=== PATIENT | male | born 1940 | race Caucasian/White ===

== ENCOUNTER 2017-09-17 00:53 | Inpatient (IN) | payer OTHER, MEDICARE ==
[~2017-09-17] VITALS: Ht 162.6 cm; Wt 79.8 kg
[~2017-09-17 00:53] MED LIST: ALPRAZOLAM0.25 M1 PO; ATORVASTATIN CA10 M1 PO; GABAPENTIN300 M2 PO; LOSARTAN-HCTZ1 EAC2 PO; OMEPRAZOLE40 M1 PO; ONGLYZA5 M1 PO; ROXICODONE15 M1 PO; ZYRTEC10 M3 PO
[2017-09-17] MEDS ORDERED: PROTONIX20 M1 PO (09:23)
[2017-09-17] MEDS ORDERED: MIRALAX17 G1 PO (09:23)
[2017-09-17] MEDS ORDERED: DILAUDID2 M1 PO (09:23)
[2017-09-17] MEDS ORDERED: COLACE100 M1 PO (09:23)
--- NOTE | 2017-09-17 09:33 | Admission Core Measures ---
Acute Coronary Syndrome (CM) ACS Core Measures Acute Coronary Syndrome Diagnosis No Congestive Heart Failure (NEW) CHF Core Measures Congestive Heart Failure Diagnosis No Cerebrovascular Accident (NEW) CVA Core Measures CVA/TIA Diagnosis No Venous Thromboembolism VTE Core Alisa (View Protocol) VTE Risk Factors Surgery No Mechanical VTE Prophylaxis d/t N/A MechProphylax Ordered No VTE Pharm Prophylaxis d/t NA PharmProphylax ordered Problem List As ranked by this Provider includes Assessment & Plan 1. Unilateral primary osteoarthritis, right hip HOME MEDS Home Med List Alprazolam 0.25 MG TABLET 1 TAB PO DAILY NEEDED SLEEP (Reported) Atorvastatin Calcium 10 MG TABLET 1 TAB PO DAILY CHOLESTEROL (Reported) Cetirizine HCl (Zyrtec) 10 MG TABLET 1 TAB PO DAILY ANTIHISTAMINE (Reported) Docusate Sodium (Colace) 100 MG CAPSULE 1 CAP PO BID STOOL SOFTENER Gabapentin 300 MG CAPSULE 1 CAP PO TID PAIN (Reported) Hydromorphone HCl (Dilaudid) 2 MG TABLET 1-2 TAB PO Q4-6 PRN PRN PAIN Losartan/Hydrochlorothiazide (Losartan-Hctz 100-25 MG Tab) 100 MG-25 MG TABLET 1 TAB PO DAILY HTN (Reported) Omeprazole 40 MG CAPSULE.DR 1 CAP PO DAILY GI (Reported) Oxycodone HCl (Roxicodone) 15 MG TABLET 1 TAB PO BIDP PRN PAIN (Reported) Pantoprazole Sodium (Protonix) 20 MG TABLET.DR 1 TAB PO DAILY GI PROTECTION Polyethylene Glycol 3350 (Miralax) 17 GRAM POWD.PACK 1 PAC PO DAILY CONSTIPATION Saxagliptin (Onglyza) 5 MG TABLET 1 TAB PO DAILY DM (Reported)
--- NOTE | 2017-09-17 09:36 | Surgical Discharge Summary ---
Visit Information Visit Dates Admission Date: 09/17/17 Discharge Date: 09/18/17 History of Present Illness Chief Complaint: right hip pain Surgical History Pertinent Surgical History: non-contributory Hospital Course Course Attending Physician: Tra Mills MD Primary Care Physician: Jerardo NAVARRETE,[facility] Course: Pt presented to [facility] on 09/17/17 for an elective right total hip arthroplasty. Pt tolerated the procedure well. Post-operatively he voided spontaneously, tolerated PO intake, pain was managed with oral medication, he ambulated with physical therapy and was cleared for discharge to home with home health services. Discharge instructions were reviewed with the patient. He was given instructions to follow-up with Dr. Mills in 6 weeks and to call sooner if she has any questions or concerns Allergies: Coded Allergies: Sulfa (Sulfonamide Antibiotics) (SWELLING 09/12/17) Disposition Summary Disposition Principal Diagnosis: right hip djd/oa Additional Diagnosis: SP R SANTIAGO Discharge Disposition: home health services Discharge Instructions General Discharge Information Code Status: Full Code Patient's Diet: regular Patient's Activity: WBAt with rolling walker Follow-Up Instructions/Appts: FU with Dr Mills in 6 weeks Medications at Discharge Discharge Medications: Start taking the following new medications: Hydromorphone HCl (Dilaudid) 2 MG TABLET 1-2 Tablet ORAL EVERY 4-6 HOURS NEEDED as needed for PAIN Qty = 36 No Refills Docusate Sodium (Colace) 100 MG CAPSULE 1 Capsule ORAL TWICE DAILY Qty = 14 No Refills Instructions: STOP TAKING IF YOU DEVELOP LOOSE STOOL/DIARRHEA Polyethylene Glycol 3350 (Miralax) 17 GRAM POWD.PACK 1 Packet ORAL DAILY Qty = 7 No Refills Instructions: dissolve in water. STOP TAKING IF YOU DEVELOP LOOSE STOOL/DIARRHEA Pantoprazole Sodium (Protonix) 20 MG TABLET.DR 1 Tablet ORAL DAILY Qty = 30 No Refills Copies To: Jerardo NAVARRETE,Otoniel
[2017-09-17] MEDS ORDERED: ASPIRIN EC81 M1 PO (09:48)
--- NOTE | 2017-09-17 10:09 | Patient Discharge Instructions ---
Discharge Instructions General Discharge Information You were seen/treated for: RIGHT HIP PAIN You had these procedures: RIGHT TOTAL HIP REPLACEMENT Watch for these problems: FEVER OVER 101 REDNESS AROUND WOUND DRAINAGE FROM WOUND UNABLE TO BEAR WEIGHT ON RIGHT LEG Call Surgeon to remove: WOUND CHECK IN 6 WEEKS No bath, but you may shower: Yes Other wound care: KEEP WOUND CLEAN AND DRY Special Instructions: NO DRIVING WHILE TAKING PAIN MEDICATION Diet Continue normal diet: Yes Activity Activity Self Limited: Yes Activity Limited to: Weight bear as tolerated (WITH ROLLING WALKER) Acute Coronary Syndrome Inclusion Criteria At DC or during hospital stay patient has or had the following: ACS DIAGNOSIS No Discharge Core Measures Meds if any: Prescribed or Continued at Discharge Meds if any: NOT Prescribed or Continued at Discharge Congestive Heart Failure Inclusion Criteria At DC or during hospital stay patient has or had the following: CHF DIAGNOSIS No Discharge Core Measures Meds if any: Prescribed or Continued at Discharge Meds if any: NOT Prescribed or Continued at Discharge Cerebrovascular accident Inclusion Criteria At DC or during hospital stay patient has or had the following: CVA/TIA Diagnosis No Discharge Core Measures Meds if any: Prescribed or Continued at Discharge Meds if any: NOT Prescribed or Continued at Discharge Venous thromboembolism Inclusion Criteria VTE Diagnosis No VTE Type NONE VTE Confirmed by (Test) NONE Discharge Core Measures - Per Current guidelines, there needs to be overlap - treatment for the first 5 days of Warfarin therapy. - If discharged on Warfarin prior to 5 days of - overlap therapy, the patient will need to be - assessed for post discharge needs including - *Post discharge parental anticoagulation - *Warfarin and/or parental anticoagulation education - *Follow up date to check INR post discharge At least 5 days overlap therapy as Inpatient No Meds if any: Prescribed or Continued at Discharge Note: Overlap Therapy is Warfarin and Anticoagulant Meds if any: NOT Prescribed or Continued at Discharge
--- NOTE | 2017-09-17 13:23 | PN- Orthopedic ---
Subjective Subjective: Awake, alert Complaining of surgical pain - tolerable with meds Denies nausea Has not ambulated or voided yet post op Objective Vital Signs and I&Os afebrile bp 130/75 RR 14 Sat 93% on 2LNC HR 88 regular Physical Exam: General: alert and oriented times three Chest; clear anteriorly bilaterally, RRR Abd: soft, good bs Ext: warm, no edema, palpable 2+ b dp, no calf tenderness Wd: dressed, dry, ice pack in place Assessment/Plan Assessment/Plan 77yo male s/p R THR anterior approach pain management PT - wbat follow up void follow up labs in am dvt ppx 81mg po bid for three weeks Core Measures Venous Thromboembolism VTE Risk Factors Surgery No Mechanical VTE Prophylaxis d/t N/A MechProphylax Ordered No VTE Pharm Prophylaxis d/t NA PharmProphylax ordered
--- NOTE | 2017-09-17 13:29 | RADIOLOGY REPORT ---
EXAMINATION: XR HIP, RIGHT CLINICAL INFORMATION: Right hip arthroplasty COMPARISON: 07/11/2016 TECHNIQUE: AP and crosstable lateral views of the right hip. FINDINGS: The femoral head prosthesis is well centered within the acetabular cup which demonstrates appropriate lateral version and anteversion. The femoral stem is well-positioned in the medullary cavity of the proximal femoral diaphysis. No acute periprosthetic fracture. The visualized right pelvic bones are intact. There is postoperative soft tissue emphysema of the proximal thigh. IMPRESSION: The components of the right total hip arthroplasty exhibit satisfactory position and alignment. No acute periprosthetic fracture.
--- NOTE | 2017-09-17 14:35 | Operative Report ---
Operative/Inv Procedure Report Surgery Date: 09/17/17 Name of Procedure: Right total hip replacement Pre-Operative Diagnosis: Primary right hip DJD Post-Operative Diagnosis: Same Estimated Blood Loss: 250 Surgeon/Grain Loader: Lina NAVARRETE,Tra Delgado Anesthesia: block Operative/Procedure Note Note: Description of Procedure: The patient was taken to the operating room and positively identified. After induction of spinal anesthesia and administration of appropriate pre-operative antibiotics, the patient was positioned supine on the operating room table and all bony prominences were well padded. After performing a surgical timeout, the right lower extremity was prepped and draped in the usual sterile fashion. A direct anterior approach was made to the right hip. The incision was carried sharply through superficial soft tissues to the level of the fascia. Meticulous hemostasis was maintained with Bovie electocautery. The fascia over the tensor fascia jillian muscle was opened sharply and the interval between the TFL and the sartorius was entered bluntly taking care to stay lateral to the lateral femoral cutaneous nerve. Retractors were placed around the femoral neck and the pericapsular fat was identified. The ascending branches of the lateral femoral circumflex vessels were identified and carefully coagulated. The pericapsular fat and anterior capsule were then resected. A napkin ring osteotomy was performed and the femoral head was removed without difficulty. Attention was then turned to the acetabulum. After appropriate placement of retractors, the acetabulum was exposed. Soft tissue was cleaned from the acetabular margin and notch. Overhanging osteophytes were removed and the teardrop was exposed. The acetabulum was then sequentially reamed to accept a 54 mm Anthony Tritanium hemispherical solid shell. This was impacted into place in the appropriate position and fitted with a 36 mm Trident X3 zero degree polyethylene insert. Attention was then turned to the femur. After performing the appropriate ligament releases, the proximal femur was exposed. It was then sequentially broached to accept a size #4 Ballantine Accolade 2 stem. This was trialed for leg length and stability. The trial component was removed and the final component was impacted into place. The trunnion was carefully cleaned and fit with a 36 mm, -2.5 Biolox delta ceramic femoral head. The hip was reduced and put through a full range of motion and found to be stable. The articular space was then irrigated with sterile saline. The periarticular soft tissues were infilitrated with Marcaine. The fascial layer was closed with interrupted #1 vicryl suture and the skin was re-approximated with interrupted 2 -0 vicryl. The skin was closed with a running 3-0 V-Lock suture. Steri-strips and a sterile dressing were applied. The patient was awakened and taken to the recovery room in satisfactory condition.
[2017-09-17 15:00] VITALS: BP 128/72
[2017-09-17 17:26] VITALS: BP 118/60
[2017-09-17 20:20] VITALS: BP 122/60
[2017-09-17 22:36] VITALS: BP 105/62
[2017-09-18 07:22] VITALS: BP 105/69
--- NOTE | 2017-09-18 07:58 | PN- Orthopedic ---
Subjective Subjective: Patient reports hip pain is well controlled. He reports back mild pain which he attributes to the bed. Denies c/p, sob or parathesias. Tolerating a diet. Voiding spontanously. Offers no other complaints. States he has not done stairs with PT yet. Objective Vital Signs and I&Os Vital Signs Date Time Temp Pulse Resp B/P B/P Pulse O2 O2 Flow FiO2 Mean Ox Delivery Rate 09/18 0722 97.8 76 20 105/69 95 Room Air 09/17 2236 97.7 86 18 105/62 94 Room Air 09/17 2020 97.8 90 20 122/60 92 Room Air 09/17 1726 97.7 105 18 118/60 93 09/17 1655 Room Air 09/17 1500 92 Room Air 09/17 1500 97.4 88 20 128/72 92 Room Air Intake & Output 09/18 0800 09/18 0000 09/17 1600 09/17 0800 09/17 0000 09/16 1600 Intake Total 600 300 Output Total Balance 600 300 Intake, IV 600 300 Patient 176 lb Weight Weight Reported by Patient Measurement Method Physical Exam: Gen- NAD Lungs - CTAB cardiac- RRR Abd- soft, nt/nd Ext- right hip dressing clean and dry, compartment soft, moves all extremities, motor and sensory intact, alps/teds in place, no edema or calf tenderness B/L Current Medications: Current Medications Sig/Finn Start time Last Medication Dose Route Stop Time Status Admin Acetaminophen 1,000 MG Q6 09/17 1800 AC 09/18 IV 09/18 1201 0516 Acetaminophen 1,000 MG Q6 09/17 1200 DC IV 09/18 0601 Acetaminophen 0 .STK-MED ONE 09/17 0914 DC PO Acetaminophen 975 MG ONE 09/17 0000 DC PO 09/17 2359 Alprazolam 0.25 MG DAILY NEEDED PRN 09/17 1000 DC PO 09/24 0959 Aspirin 81 MG BID 09/17 2100 DC PO Aspirin Buffered 81 MG BID 09/17 2100 DC PO Aspirin Buffered 81 MG BID 09/17 2100 AC 09/17 PO 2043 Atorvastatin Calcium 10 MG 1700 09/18 1700 DC PO Atorvastatin Calcium 10 MG 1700 09/18 1700 AC PO Cefazolin Sodium 2 GM Q8H 09/17 1815 DC 09/18 N/A 1 UNIT IV 09/18 0244 0253 Cefazolin Sodium 2,000 MG ONE 09/17 0000 DC IV 09/17 2359 Dextrose/Sodium 1,000 ML .[id number] 09/17 1430 DC 09/18 Chloride IV 09/18 0349 0259 Fentanyl Citrate 100 MCG .STK-MED ONE 09/17 0956 DC IM 09/17 0957 Gabapentin 300 MG TID 09/17 2100 AC 09/17 PO 2043 Gabapentin 300 MG TID 09/17 1400 DC PO Hydrochlorothiazide 25 MG DAILY 09/18 0900 AC PO Hydromorphone HCl 2 MG Q4P PRN 09/17 1430 AC 09/17 PO 2043 Hydromorphone HCl 4 MG Q4P PRN 09/17 1430 AC 09/18 PO 0259 Losartan Potassium 100 MG DAILY 09/18 0900 DC PO Losartan Potassium 100 MG DAILY 09/18 0900 AC PO Midazolam HCl 2 MG .STK-MED ONE 09/17 0957 DC IM 09/17 0958 Morphine Sulfate 2 MG Q2P PRN 09/17 1430 AC 09/17 IV 1651 Omeprazole 40 MG DAILY AC 09/18 0700 DC PO Omeprazole 40 MG DAILY AC 09/18 0700 AC 09/18 PO 0516 Ondansetron HCl 4 MG Q6P PRN 09/17 1430 AC IV Oxycodone HCl 0 .STK-MED ONE 09/17 0915 DC PO Oxycodone HCl 10 MG ONE 09/17 0000 DC PO 09/17 2359 Polyethylene Glycol 17 GM DAILY 09/18 0900 DC PO Polyethylene Glycol 17 GM DAILY 09/18 0900 AC PO Promethazine HCl 12.5 MG Q6P PRN 09/17 1430 AC IV 09/24 0959 Sitagliptin Phosphate 50 MG DAILY 09/18 0900 AC PO Tranexamic Acid 2,000 MG .STK-MED ONE 09/17 0956 DC IV 09/17 0957 Results Last 48 Hours of Labs: Laboratory Tests 09/18 729 Chemistry Sodium Pending Potassium Pending Chloride Pending Carbon Dioxide Pending Anion Gap Pending BUN Pending Creatinine Pending BUN/Creatinine Ratio Pending Hematology CBC w Diff Pending WBC Pending RBC Pending Hgb Pending Hct Pending MCV Pending MCH Pending MCHC Pending RDW Pending Plt Count Pending MPV Pending Assessment/Plan Assessment/Plan 77 M POD 1 s/p right anterior SANTIAGO, recovering well Cont reg diet, d/c IVF Cont pain regimen pain DVT ppx- asa 81mg bid x 3 weeks OOB PT, WBAT Encourage IS Home meds on board F/u labs Anticipate d/c today pending PT clearance Core Measures Venous Thromboembolism VTE Risk Factors Surgery No Mechanical VTE Prophylaxis d/t N/A MechProphylax Ordered No VTE Pharm Prophylaxis d/t NA PharmProphylax ordered
[2017-09-18 08:40] LABS: ABSOLUTE BASOPHIL COUNT 0 /CUMM (0.0-0.2); ABSOLUTE EOSINOPHIL COUNT 0 /CUMM (0.0-0.7); ABSOLUTE GRANULOCYTE CT 11.6 /CUMM (1.4-6.5); ABSOLUTE MONOCYTE COUNT 1.7 /CUMM (0.10-0.60); BASOPHIL % 0 % (0.0-2.0); EOSINOPHIL % 0.2 % (0-5); HEMATOCRIT 35.8 % (42-52); MEAN CORPUSCULAR HGB CONC 33.8 G/DL (33.0-37.0); MEAN CORPUSCULAR VOLUME 88.9 FL (80.0-94.0); MEAN PLATELET VOLUME 8.8 FL (7.4-10.4); PLATELET COUNT 280 /CUMM (130-400); RBC DISTRIBUTION WIDTH 13.9 % (11.5-14.5); RED BLOOD CELL CT 4.03 /CUMM (4.70-6.10); WHITE BLOOD CELL COUNT 14.3 /CUMM (4.8-10.8)
[2017-09-18 09:21] VITALS: BP 105/69
== END 2017-09-18 13:00 | disposition home health service (06) | DRG 470 ==
LOC: SDA 00:53 → ENRESERV 13:41 → ENTRNSPT 13:58 → EDTRNSPTSTS 14:20 → EDTRNSPT 14:20 → 2NB 14:28 → CMPTRNSPT 14:33 → ENPENDDIS 09-18 10:10 → ENTRNSPT 09-18 12:25 → EDTRNSPTSTS 09-18 12:52 → 2NB 09-18 13:00 → CMPTRNSPT 09-18 13:14
PROVIDERS: Physician Assistant Surgical
PROC: 0SR904A Replacement of Right Hip Joint with Ceramic on Polyethylene Synthetic Substitute, Uncemented, Open Approach (ICD-10-PCS; principal; 2017-09-17)
DX: M16.11 Unilateral primary osteoarthritis, right hip (principal); E11.9 Type 2 diabetes mellitus without complications; I10 Essential (primary) hypertension; Z79.891 Long term (current) use of opiate analgesic; K57.90 Diverticulosis of intestine, part unspecified, without perforation or abscess without bleeding; Z90.49 Acquired absence of other specified parts of digestive tract; Z88.2 Allergy status to sulfonamides
CPT/HCPCS: 2NBP; 36415; 73502-RT; 82436; 97110-GO; 97116-GO; 97161-GP; J0131; J0690; J0735; J2405; J2550; J3490; J7042